=== PATIENT | female | born 1995 | race Caucasian/White ===

== ENCOUNTER 2016-11-29 22:05 | Emergency (ER) | payer BC, OTHER ==
--- NOTE | 2016-11-29 23:33 | EDPHY ---
H & P Smoking Status: Never smoked Time Seen by Provider: 11/29/16 22:27 HPI/ROS: CHIEF COMPLAINT: Left foot laceration HISTORY OF PRESENT ILLNESS: 20-year-old female presents emergency department with a laceration to her left foot after stepping on a razor blade on her floor tonight. Patient reports tetanus is up-to-date, she denies numbness or tingling to this foot, no other complaints. (Ifeoma Claudio) Physical Exam: GEN: Awake, alert, oriented, no acute distress RESP: nl resp effort MSK: Full range of motion of foot and ankle, sensation intact to light touch, full flexion and extension of toes at MTP joint SKIN: 1.5 cm laceration to sole of hindfoot just before distal to the heel, (Ifeoma Claudio) Constitutional: Initial Vital Signs Temperature (C) 36.8 C 11/29/16 22:14 Heart Rate 107 H 11/29/16 22:14 Respiratory Rate 18 11/29/16 22:14 Blood Pressure 103/72 11/29/16 22:14 O2 Sat (%) 94 11/29/16 22:14 O2 Delivery Mode Room Air Allergies/Adverse Reactions: amoxicillin Allergy (Verified 11/29/16 22:13) MDM/Departure - MDM Procedures: Procedure: Laceration repair. Verbal consent was obtained from the patient. The 1.5 cm laceration on the left foot was anesthetized using 1% lidocaine with epinephrine. The wound was carefully irrigated by the emergency department software support technician. Next, the wound was prepped and draped in sterile fashion and explored to its base with a gloved finger. There were no deep structures involved. No tendon injury was identified. No vascular injury was identified. No foreign bodies were identified. The wound was repaired with 5.0 Prolene, 4 simple interrupted sutures. The wound repair was simple. The procedure was performed by myself. Tetanus and antibiotic status were addressed. (Ifeoma Claudio) ED Course/Re-evaluation: PHYSICIAN DOCUMENTATION: The patient was evaluated and managed by the Physician 3D Designer. My co- signature indicates that I have reviewed this chart and I agree with the findings and plan of care as documented. I am the secondary supervising physician. (Vilma Amaral) - Depart Disposition: Home, Routine, Self-Care Clinical Impression: Laceration of left foot Qualifiers: Encounter type: initial encounter Qualifier Code: (S91.312A) Laceration without foreign body, left foot, initial encounter Condition: Good Instructions: Laceration (ED) Additional Instructions: Return to the emergency department 12-14 days for suture removal, return sooner for any signs of infection, redness, drainage, fevers. Follow up with the petroleum terminal plant operator next week for re-check. Call Thursday to schedule this appointment. Referrals: Modesto Ozuna DPM [Doctor of Podiatric Medicine] - As per Instructions ( [employer] Operator on-call)
[2016-11-29 23:52] VITALS: BP 108/67; PULSE 87; RESP 16; TEMP 98.1; O2SAT 98
== END 2016-11-29 23:51 | disposition home or self-care (01) ==
PROC: 0HQNXZZ Repair Left Foot Skin, External Approach (ICD-10-PCS; principal; 2016-11-29)
DX: S91.312A Laceration without foreign body, left foot, initial encounter (principal); W26.8XXA Contact with other sharp object(s), not elsewhere classified, initial encounter